=== PATIENT | female | born 2000 | race African-American/Black ===

== ENCOUNTER 2021-08-13 14:14 | Emergency (ER) | payer OTHER, SELFPAY ==
[~2021-08-13] VITALS: Ht 152.4 cm; Wt 45.4 kg
[2021-08-13 14:15] VITALS: BP_SYST 123
[2021-08-13 16:10] VITALS: BP_SYST 121
== END 2021-08-13 16:10 | disposition home or self-care (01) ==
LOC: SED 14:14
DX: J40 Bronchitis, not specified as acute or chronic (principal); Z20.822 Contact with and (suspected) exposure to COVID-19
CPT/HCPCS: 36415; 99283